=== PATIENT | male | born 1955 | race Caucasian/White ===

== ENCOUNTER 2017-09-06 10:36 | Emergency (ER) | payer BC ==
[2017-09-06] MEDS ORDERED: Ketorolac Tromethamine 30 MG/ML VIAL ONE (11:02)
[2017-09-06 11:16] LABS: #Basophils 0.1 thou/uL (0.0-0.2); #Eosinphils 0.3 thou/uL (0.0-0.7); #Lymphocytes 1.4 thou/uL (1.20-3.40); #Neutrophils 8.6 thou/uL (1.40-6.50); %Basophils 0.9 % (0.0-1.0); %Eosinophils 2.9 % (0.0-10.0); %Lymphocytes 12.3 % (21.0-51.0); %Monocytes 8.4 % (0.0-10.0); %Neutrophils 75.5 % (42.0-75.0); Hemoglobin 15.2 g/dL (14.0-18.0); Mean Corpuscular HGB CONC 35.2 g/dL (32.0-36.0); Mean Corpuscular Hemoglobin 31.4 pg (27.0-31.0); Mean Corpuscular Volume 89.4 fL (78.0-98.0); Mean Platelet Volume 6.5 fL (7.4-10.4); Platelet Count 240 thou/uL (130-400); RBC Distribution Width 12.6 % (11.5-14.5); Red Blood Cell (RBC) Count 4.82 mill/uL (4.70-6.10); White Blood Cell (WBC) Count 11.4 thou/uL (4.8-10.8)
--- NOTE | 2017-09-06 11:27 | CT ---
CT OF THE ABDOMEN AND PELVIS: Date: 09/06/17 PROVIDED CLINICAL HISTORY: Right flank pain. FINDINGS: Comparison with 05/20/08. The visualized lung bases are free of significant opacity. There is right-sided mild hydronephrosis and hydroureter to the level of a 1-2 mm right UVJ calculus. No additional urinary tract calculi are evident. No evidence for left-sided hydronephrosis. Mild rig ht perinephric fat stranding. The solid abdominal organs are suboptimally evaluated in the absence of IV contrast material, but dem onstrate an unremarkable unenhanced CT appearance. There is no bowel dilatation, additional inflammatory fat stranding, free fluid, or free air apparent . Fat-containing left inguinal hernia is noted. The osseous structures demonstrate no concerning lytic or blastic lesions. Degenerative changes are s een involving the spine. IMPRESSION: 1-2 mm obstructing right UVJ calculus. POS: [facility]
[2017-09-06 11:48] LABS: AST (SGOT) 22 U/L (5-34); Potassium 4.6 mmol/L (3.5-5.1); Protein, Total 6.6 g/dL (5.8-8.1)
[2017-09-06 11:50] LABS: ALT (SGPT) 18 U/L (8-55); Albumin 4.2 g/dL (3.4-4.8); Alkaline Phosphatase 79 U/L (40-150); Anion Gap 17 mmol/L (10-20); BUN (Urea Nitrogen) 25 mg/dL (8.4-25.7); Bilirubin, Total 0.4 mg/dL (0.2-1.2); Calc. Creatinine Clearance 0 mL/min (70-130); Calcium 9.4 mg/dL (7.8-10.44); Carbon Dioxide 21 mmol/L (23-31); Chloride 107 mmol/L (98-107); Estimated GFR-MDRD 50; Globulin 2.4 g/dL (2.4-3.5); Glucose 102 mg/dL (80-115); Sodium 139 mmol/L (136-145)
[2017-09-06] MEDS ORDERED: Ondansetron HCl/PF 4 MG/2 ML Vial ONE (11:53)
[2017-09-06] MEDS ORDERED: Morphine 4 MG/ML Carpuject ONE (11:53)
[2017-09-06 12:52] LABS: Bilirubin Small (Negative); Blood, Urine Negative (Negative); Clarity Clear (Clear); Glucose, Urine (Dipstick) Negative (Negative); Leukocyte Negative (Negative); Nitrite Negative (Negative); Protein, Urine (Dipstick) Trace mg/dL (Neg-Trace); Specific Gravity, Urine 1.033 (1.002-1.036); Urobilinogen 0.2 mg/dL (0.2-1.0); pH, Urine 5.5 (5.0-9.0)
== END 2017-09-06 13:12 | disposition home or self-care (01) ==
LOC: SCSER 10:36
DX: N13.9 Obstructive and reflux uropathy, unspecified (principal); Z79.82 Long term (current) use of aspirin; Z79.899 Other long term (current) drug therapy
CPT/HCPCS: 36415; 74176; 80053; 81003; 85025; 87086; 96361; 96374; 96375; J1885; J2270; J2405